=== PATIENT | female | born 1980 | race Caucasian/White ===

== ENCOUNTER 2021-02-02 12:31 | Outpatient (CLI) | payer OTHER | END 2021-02-02 12:32 | disposition home or self-care (01) | LOC: BICRAD 12:31 | PROVIDERS: ATTEND Family Medicine | DX: R06.00 Dyspnea, unspecified (principal); R06.89 Other abnormalities of breathing; Z01.84 Encounter for antibody response examination | CPT/HCPCS: 36415; 71046 ==